=== PATIENT | male | born 1995 | race African-American/Black ===

== ENCOUNTER 2019-05-28 08:35 | Emergency (ER) | payer OTHER ==
[~2019-05-28] VITALS: Ht 180.3 cm; Wt 106.0 kg
[2019-05-28] MEDS ORDERED: IBUPROFEN 600MG TABLET PO STA (09:23)
[2019-05-28 10:30] LABS: CLARITY URINE CLEAR (CLEAR); COLOR URINE YELLOW (YELLOW); KETONES URINE NEGATIVE (NEGATIVE); LEUKOCYTE ESTERASE URINE NEGATIVE (NEGATIVE); NITRITE URINE NEGATIVE (NEGATIVE); OCCULT BLOOD URINE NEGATIVE (NEGATIVE); PH URINE 5.5 (4.5-8.0); PROTEIN URINE NEGATIVE (NEGATIVE); SPECIFIC GRAVITY URINE 1.037 (1.005-1.030); UROBILINOGEN URINE 0.2 E.U./dL (0.2-1.0)
[2019-05-28 11:14] VITALS: BP 128/82
== END 2019-05-28 11:15 | disposition home or self-care (01) ==
LOC: ER 08:35
DX: N50.89 Other specified disorders of the male genital organs (principal)
CPT/HCPCS: 76870; 81003; 93976; 99284